=== PATIENT | female | born 1955 | race Caucasian/White ===

== ENCOUNTER 2016-09-07 06:50 | Day surgery (SDC) | payer OTHER ==
[2016-09-07] MEDS ORDERED: Sodium Chloride 0.9% 1,000 ML IV SCH (07:30)
[2016-09-07] MEDS ORDERED: Propofol 200 MG/20 ML SDV ONE (07:41)
[2016-09-07] MEDS ORDERED: fentaNYL 100 MCG/2 ML SDV ONE (07:42)
[2016-09-07] MEDS ORDERED: Midazolam 1 MG/ML 2 ML SDV ONE (07:42)
[2016-09-07 09:16] VITALS: BP 135/76
--- NOTE | 2016-09-08 08:58 | OR ---
DATE OF PROCEDURE: 09/07/2016 PROCEDURE: Colonoscopy. FINDINGS: Normal colonoscopy. COMPLICATION: None. CLINICAL DIETITIAN: None. PREOPERATIVE DIAGNOSIS: Screening colonoscopy. POSTOPERATIVE DIAGNOSIS: Screening colonoscopy. INDICATIONS: Risks benefits, alternatives, and limitations, including, but not limited to infection, bleeding, and perforation. The patient wished to proceed. PROCEDURE IN DETAIL: The patient was placed in left lateral decubitus position. Digital rectal exam was performed without abnormality. The scope was introduced and advanced atraumatically to the ileocecal valve. The scope was brought back to the ascending, transverse, descending colon, and retroflexed. No polyps, no masses. No old or new blood. No diverticulosis. The patient tolerated the procedure well. Marcelo Goel MD /[id number]
== END 2016-09-07 09:30 | disposition home or self-care (01) ==
LOC: JP.SDS 06:50
PROVIDERS: ATTEND Surgery
DX: Z12.11 Encounter for screening for malignant neoplasm of colon (principal)
CPT/HCPCS: 45378; J2250; J2704; J3010

== ENCOUNTER 2022-07-27 07:52 | Day surgery (SDC) | payer MEDICARE ==
[2022-07-27] MEDS ORDERED: Propofol 200 MG/20 ML SDV ONE (08:30)
[2022-07-27] MEDS ORDERED: fentaNYL 100 MCG/2 ML SDV ONE (08:30)
[2022-07-27] MEDS ORDERED: Dextrose 5%-Lactated Ringers 1,000 ML IV SCH (08:30)
[2022-07-27] MEDS ORDERED: Glycopyrrolate 0.2 MG/ML 2 ML SDV IVPUSH ONE (08:30)
[2022-07-27] MEDS ORDERED: Midazolam 1 MG/ML 2 ML SDV ONE (08:30)
[2022-07-27 12:50] VITALS: BP 142/96; PULSE 106
== END 2022-07-27 12:59 | disposition home or self-care (01) ==
LOC: JP.SDS 07:52
PROVIDERS: ATTEND Surgery
DX: K90.9 Intestinal malabsorption, unspecified (principal); Z79.899 Other long term (current) drug therapy
CPT/HCPCS: 43239; 88305; J2250; J2704; J3010; J3490; J7121

== ENCOUNTER 2023-12-30 14:38 | Emergency (ER) | payer MEDICARE ==
[2023-12-30 14:52] VITALS: BP 127/53; PULSE 73
[2023-12-30] MEDS ORDERED: Propofol 200 MG/20 ML SDV ONE (16:20)
[2023-12-30] MEDS: Sodium Chloride 0.9% 10 ML Syringe FLUSH PRN (17:07)
[2023-12-30] MEDS: HYDROmorphone 0.5 MG/0.5 ML Syringe IVPUSH ONE (17:07)
== END 2023-12-30 18:05 | disposition home or self-care (01) ==
LOC: JP.ED 14:38
DX: S52.202A Unspecified fracture of shaft of left ulna, initial encounter for closed fracture (principal); S52.92XA Unspecified fracture of left forearm, initial encounter for closed fracture; Z79.899 Other long term (current) drug therapy; W18.39XA Other fall on same level, initial encounter; Y93.89 Activity, other specified
CPT/HCPCS: 25605; 73090; 73110; 76000; 96374; 99283; J1170; J2704; J3490